=== PATIENT | female | born 1965 | race Caucasian/White ===

== ENCOUNTER 2018-09-01 21:29 | Emergency (ER) | payer OTHER ==
[2018-09-01] MEDS ORDERED: DESV50TA9 PO (21:36)
[2018-09-01] MEDS ORDERED: HYDR-2966 PO (21:37)
--- NOTE | 2018-09-01 21:47 | ER Report ---
History and Physical Time Seen By MD: 21:46 Hx. of Stated Complaint: [place], started noticing increasing blood in urine, suprapubic"tugging," CEDNEO. HPI/ROS CHIEF COMPLAINT: lower abdominal pain, dysuria HISTORY OF PRESENT ILLNESS: This is a 53 year old female. She has had pain with urination for the last two days. Lower abdominal pain. Had some blood with wiping after urinating last night. No bowel problems. No vaginal bleeding or discharge. No fevers. Traveling from [place] to [place]. No cough or trouble breathing. No chest pain. No diarrhea or bowel problems. No musculoskeletal pain. Allergies: Coded Allergies: sulfamethoxazole (Verified Allergy, Severe, SHORTNESS OF BREATH, 09/01/18) trimethoprim (Verified Allergy, Severe, SHORTNESS OF BREATH, 09/01/18) Home Meds Active Scripts Amoxicillin (AMOXICILLIN) 500 Mg Capsule, 1 CAP PO Q8H, #15 CAPSULE 0 Refills Prov:ADALBERTO PERALTA MD 09/01/18 Phenazopyridine Hcl (PHENAZOPYRIDINE HCL) 200 Mg Tablet, 200 MG PO TID PRN for PAIN, #12 TAB 0 Refills Prov:ADALBERTO PERALTA MD 09/01/18 Ketorolac Tromethamine (KETOROLAC TROMETHAMINE) 10 Mg Tab, 10 MG PO Q6H PRN for PAIN, #12 TAB 0 Refills Prov:ADALBERTO PERALTA MD 09/01/18 Reported Medications Hydrochlorothiazide (HYDROCHLOROTHIAZIDE) 25 Mg Tablet, 0.5 TAB PO QDAY, TAB 09/01/18 Desvenlafaxine Succinate (PRISTIQ ER) 50 Mg Tab.er.24h, 25 MG PO DAILY 09/01/18 Reviewed Nurses Notes: Yes Hx Substance Use Disorder: No Hx Alcohol Use: No Constitutional Vital Sign - Last 24 Hours 09/01/18 09/01/18 09/01/18 09/01/18 21:29 21:37 21:39 21:44 Temp 98.7 Pulse ??? 95 90 Resp 16 B/P (MAP) 149/71 (97) Pulse Ox 96 96 O2 Delivery Room Air 09/01/18 09/01/18 09/01/18 09/01/18 21:59 22:14 22:24 22:29 Pulse 95 87 91 B/P (MAP) 133/69 (90) Pulse Ox 95 96 94 09/01/18 09/01/18 09/01/18 09/01/18 22:40 22:44 22:59 23:00 Pulse 92 95 B/P (MAP) 127/69 (88) 132/75 (94) Pulse Ox 94 92 09/01/18 23:09 Temp 97.5 Physical Exam General Appearance: The patient is alert. No acute distress. Eyes: Pupils are equal, round. No pallor, injection or icterus. ENT: Mucous membranes are moist. Respiratory: Lungs are clear to auscultation. Cardiovascular: Regular rate and rhythm. No murmurs, gallops or rubs. Normal capillary refill. Gastrointestinal: Abdomen is soft, tender in suprapubic area. Nondistended. Normal active bowel sounds. No CVA tenderness. DIFFERENTIAL DIAGNOSIS: After history and physical exam, differential diagnosis was considered for urinary tract infection. Medical Decision Making Data Points Laboratory Hematology Test 09/01/18 21:33 Urine Color Red Urine Clarity Cloudy Urine pH 7.0 pH (4.8-9.5) Urine Specific [place] 1.011 Urine Protein 100 mg/dL (NEGATIVE) Urine Glucose (UA) Negative mg/dL (NEGATIVE) Urine Ketones Trace mg/dL (NEGATIVE) Urine Blood Large (NEGATIVE) Urine Nitrite Negative (NEGATIVE) Urine Bilirubin Negative (NEGATIVE) Urine Urobilinogen Negative mg/dL (0.2-1.9) Urine Leukocyte Esterase Small (NEGATIVE) Urine RBC 3650 /HPF (0-2/HPF) Urine WBC 756 /HPF (0-5/HPF) Urine Squamous Epithelial Cells None /LPF (</=FEW) Urine Bacteria Negative /HPF (NONE-FEW) Urine Mucus None /HPF (NONE-FEW) Chemistry Test 09/01/18 21:33 Urine Color Red Urine Clarity Cloudy Urine pH 7.0 pH (4.8-9.5) Urine Specific [place] 1.011 Urine Protein 100 mg/dL (NEGATIVE) Urine Glucose (UA) Negative mg/dL (NEGATIVE) Urine Ketones Trace mg/dL (NEGATIVE) Urine Blood Large (NEGATIVE) Urine Nitrite Negative (NEGATIVE) Urine Bilirubin Negative (NEGATIVE) Urine Urobilinogen Negative mg/dL (0.2-1.9) Urine Leukocyte Esterase Small (NEGATIVE) Urine RBC 3650 /HPF (0-2/HPF) Urine WBC 756 /HPF (0-5/HPF) Urine Squamous Epithelial Cells None /LPF (</=FEW) Urine Bacteria Negative /HPF (NONE-FEW) Urine Mucus None /HPF (NONE-FEW) Urinalysis Test 09/01/18 21:33 Urine Color Red Urine Clarity Cloudy Urine pH 7.0 pH (4.8-9.5) Urine Specific [place] 1.011 Urine Protein 100 mg/dL (NEGATIVE) Urine Glucose (UA) Negative mg/dL (NEGATIVE) Urine Ketones Trace mg/dL (NEGATIVE) Urine Blood Large (NEGATIVE) Urine Nitrite Negative (NEGATIVE) Urine Bilirubin Negative (NEGATIVE) Urine Urobilinogen Negative mg/dL (0.2-1.9) Urine Leukocyte Esterase Small (NEGATIVE) Urine RBC 3650 /HPF (0-2/HPF) Urine WBC 756 /HPF (0-5/HPF) Urine Squamous Epithelial Cells None /LPF (</=FEW) Urine Bacteria Negative /HPF (NONE-FEW) Urine Mucus None /HPF (NONE-FEW) ED Course/Re-evaluation ED Course UA is positive for urinary tract infection. Started on Amoxicillin. Given Toradol and Pyridium. Decision to Disposition Date: Sep 01, 2018 Decision to Disposition Time: 22:50 Depart Departure Latest Vital Signs Vital Signs Date Time Temp Pulse Resp B/P (MAP) Pulse Ox O2 Delivery O2 Flow Rate FiO2 09/01/18 23:09 97.5 09/01/18 23:00 132/75 (94) 09/01/18 22:59 95 92 09/01/18 21:37 16 Room Air Impression: Primary Impression: Urinary tract infection Condition: Improved Disposition: HOME OR SELF-CARE New Scripts Amoxicillin (AMOXICILLIN) 500 Mg Capsule 1 CAP PO Q8H, #15 CAPSULE 0 Refills Prov: ADALBERTO PERALTA MD 09/01/18 Phenazopyridine Hcl (PHENAZOPYRIDINE HCL) 200 Mg Tablet 200 MG PO TID PRN for PAIN, #12 TAB 0 Refills Prov: ADALBERTO PERALTA MD 09/01/18 Ketorolac Tromethamine (KETOROLAC TROMETHAMINE) 10 Mg Tab 10 MG PO Q6H PRN for PAIN, #12 TAB 0 Refills Prov: ADALBERTO PERALTA MD 09/01/18 Patient Instructions: Urinary Tract Infection in Women (ED) Additional Instructions: Take Amoxicillin 500mg three times a day for 5 days. Take Toradol 10mg, one every 6 hours as needed for pain. Take Pyridium 200mg, one every 8 hours as needed for pain with urination. Problem Qualifiers Primary Impression: Urinary tract infection Urinary tract infection type: acute cystitis Hematuria presence: with hematuria Qualified Codes: N30.01 - Acute cystitis with hematuria ADALBERTO PERALTA MD Sep 01, 2018 21:47
[2018-09-01] MEDS ORDERED: KETOROLAC TROM 10 MG TAB TH PO ONE (22:50)
[2018-09-01] MEDS ORDERED: KETOROLAC TROM 10MG TAB PO ONE (22:50)
[2018-09-01] MEDS ORDERED: PHENAZOPYRIDINE 200 MG TAB TH 2 TAB/BOTTLE PO ONE (22:50)
[2018-09-01] MEDS ORDERED: PHENAZOPYRIDINE 200 MG TAB PO ONE (22:50)
[2018-09-01] MEDS ORDERED: AMOXICILLIN 500 MG CAP PO ONE (22:50)
[2018-09-01] MEDS ORDERED: AMOX-362 PO (22:52)
[2018-09-01] MEDS ORDERED: KET10 PO (22:52)
[2018-09-01] MEDS ORDERED: PHEN200T32 PO (22:52)
[2018-09-01 23:00] VITALS: BP 132/75
== END 2018-09-01 23:10 | disposition home or self-care (01) ==
LOC: ER 21:52
DX: N30.01 Acute cystitis with hematuria (principal)
CPT/HCPCS: 81001; 87088; 99283